=== PATIENT | male | born 1965 | race Caucasian/White ===

== ENCOUNTER 2022-05-09 17:04 | Emergency (ER) | payer MEDICAID, SELFPAY ==
--- NOTE | ~2022-05-09 | XR_ITS ---
XR foot RT min 3V DATE: 05/09/2022 17:49 INDICATION: Pain TECHNIQUE: 4 views COMPARISON: None FINDINGS: Mild plantar and slight posterior calcaneal enthesopathy. No fracture, dislocation, periosteal reaction or bone destruction. Mild osteophyte is at the first me tatarsophalangeal joint. 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
[2022-05-09 17:26] VITALS: BP 151/97; PULSE 78; RESP 20; TEMP 37.1; O2SAT 95
--- NOTE | 2022-05-09 17:39 | ED.LOWEXIN ---
HPI - Extremity Injury (Lower) General Chief Complaint: Extremity Injury, Lower Stated Complaint: Right foot pain History of Present Illness HPI Narrative: PATIENT PRESENTS WITH PAIN TO HIS RIGHT HEEL FOR THE PAST 3 WEEKS. PATIENT DENIES ANY INJURY. PATIENT DENIES ANY NEW SHOES NO CHANGE IN LIFESTYLE BUT PATIENT HAS PAIN TO THE MEDIAL SIDE OF HIS LEFT FOOT ALL ALONG TO THE HEEL. PATIENT STATES HE HAS BEEN TAKING IBUPROFEN WITHOUT ANY RELIEF. Related Data Allergies Allergy/AdvReac Type Severity Reaction Status Date / Time No Known Allergies Allergy Verified 05/09/22 17:30 Review of Systems Review of Systems: CONSTITUTIONAL: DENIES FEVER, CHILLS, OR SWEATS. EYES: DENIES VISUAL CHANGES, REDNESS, OR DISCHARGE. ENT: DENIES RHINORRHEA, CONGESTION, SORE THROAT, OR OTALGIA. CARDIOVASCULAR: DENIES CHEST PAIN, PALPITATIONS, OR EDEMA. RESPIRATORY: DENIES COUGH OR DYSPNEA. GASTROINTESTINAL: DENIES ABDOMINAL PAIN, NAUSEA, VOMITING, OR DIARRHEA. GENITOURINARY: DENIES DYSURIA OR HEMATURIA. SKIN: DENIES RASH OR ITCHING. MUSCULOSKELETAL: DENIES BACK PAIN, JOINT PAIN, OR MYALGIA. NEUROLOGIC: DENIES HEADACHE, NUMBNESS, OR WEAKNESS. PSYCHIATRIC: DENIES ANXIETY OR DEPRESSION. PMFSH Comments AT TIME OF SIGNATURE, AGREE WITH NURSING PAST MEDICAL, SURGICAL, SOCIAL AND FAMILY HISTORY. THERE IS NO RELEVANT FAMILY HISTORY PERTINENT TO THE PRESENTING COMPLAINT Exam Narrative: GENERAL: WELL-APPEARING, WELL-NOURISHED, AND IN NO ACUTE DISTRESS. HEAD: NORMOCEPHALIC, ATRAUMATIC. EYES: PERRLA AND EOMI. ENT: NARES CLEAR, NO RHINORRHEA OR EPISTAXIS. MUCOUS MEMBRANES MOIST. NECK: SUPPLE. CHEST: CLEAR TO AUSCULTATION. NO RESPIRATORY DISTRESS. HEART: REGULAR RATE AND RHYTHM. NO MURMUR HEARD. NORMAL PERIPHERAL PULSES. ABDOMEN: SOFT, NONTENDER, NONDISTENDED, NORMAL ACTIVE BOWEL SOUNDS. EXTREMITIES: NORMAL RANGE OF MOTION. NO EDEMA. SKIN INTACT. NORMAL DP PULSE, NORMAL CAP REFILL. NORMAL SENSATION. PAIN TO MEDIAL SIDE OF RIGHT FOOT PLANTAR SIDE AND HE WILL SKIN: WARM, DRY, NO RASH. NEURO: NO FOCAL DEFICITS. ALERT AND ORIENTED X3. AISLINN COMA SCALE EYE OPENING: SPONTANEOUS 4 AISLINN COMA SCALE MOTOR: OBEYS COMMANDS 6 AISLINN COMA SCALE VERBAL: ORIENTED 5 AISLINN COMA SCALE TOTAL 15 Course Course Level of Care: Express Care Visit Vital Signs Vital signs: Vital Signs Temperature 37.1 C 05/09/22 17:26 Pulse Rate 78 05/09/22 17:26 Respiratory Rate 20 05/09/22 17:26 Blood Pressure 151/97 H 05/09/22 17:26 Pulse Oximetry 95 05/09/22 17:26 Oxygen Delivery Room Air 05/09/22 17:26 Temperature 37.1 C 05/09/22 17:26 Pulse Rate 78 05/09/22 17:26 Respiratory Rate 20 05/09/22 17:26 Blood Pressure 151/97 H 05/09/22 17:26 Pulse Oximetry 95 05/09/22 17:26 Oxygen Delivery Room Air 05/09/22 17:26 PLEASE JAMES SCHEDULE A FOLLOWUP VISIT WITH YOUR PERSONAL PHYSICIAN FOR FURTHER EVALUATION AND TREATMENT. INCLUDING RECHECK AND DISCUSSION OF YOUR BLOOD PRESSURE. IF YOUR SYMPTOMS PERSIST, CHANGE OR WORSEN SIGNIFICANTLY BEFORE YOU CAN CONTACT YOUR PERSONAL PHYSICIAN THEN PLEASE, WITHOUT DELAY, GO TO THE EMERGENCY DEPARTMENT FOR FURTHER EVALUATION Discharge Plan Discharge Clinical Impression: Plantar fasciitis Patient Disposition: Home, Self-Care Condition: Stable Instructions: Osteoarthritis (DC), Heel Spur (ED) Additional Instructions: MEDICATIONS PRESCRIBED ELEVATE HEAT/ICE FOLLOW UP WITH pcp IN 2-3 DAYS IF ANY NEW OR WORSENING OF SYMPTOMS GO TO ER IMMEDIATELY Prescriptions: New prednisone 20 mg tablet 40 mg PO DAILY 5 Days Qty: 10 0RF Follow-up/Referrals: Tyler Donis MD [Primary Care Provider] -
== END 2022-05-09 18:25 | disposition home or self-care (01) ==
PROVIDERS: Emergency Provider Nurse Practitioner Family; PCP Emergency Medicine
DX: M72.2 Plantar fascial fibromatosis (principal)
CPT/HCPCS: 73630; 99213; G0463

== ENCOUNTER 2022-05-27 10:00 | Emergency (ER) | payer MEDICAID, SELFPAY ==
[2022-05-27 10:08] VITALS: BP 152/83; PULSE 88; RESP 16; TEMP 37.1; O2SAT 97
--- NOTE | 2022-05-27 10:42 | ED.URI ---
HPI - URI/Sore Throat General Chief Complaint: Upper Respiratory Infection Stated Complaint: cold/flu Time Seen by Provider: 05/27/22 10:35 Source: patient, RN notes reviewed and old records reviewed Mode of arrival: ambulatory Limitations: no limitations History of Present Illness HPI Narrative: 57 year old male who presents to [facility] care with 3 day history of cough, headache vomiting and diarrhea, chest congestion and head congestion with expectoration of yellow mucous. Patient reports that he has had chronic tiredness since having COVID. Patient denies any fevers, chills or body aches, states that he has had COVID vaccination. He has not taken any OTC medications for his symptoms, reports they 'don't work'. Reports no fever, or known ill contact. MD elicited complaint: cough, rhinorrhea, nasal congestion and other (chest congestion, vomiting and diarrhea) Pertinent past history: pneumonia Onset (ago): day(s) (3) Pain scale (0-10): 8 Description of mucous: yellow Able to tolerate fluids by mouth: Yes Treatments prior to arrival: none Related Data Allergies Allergy/AdvReac Type Severity Reaction Status Date / Time No Known Allergies Allergy Verified 05/09/22 17:30 Review of Systems Review of Systems: CONSTITUTIONAL: Denies malaise, chills, sweats, or fever. EYES: Denies visual changes, redness, or discharge. ENT: Reports rhinorrhea, congestion, sinus pain, no otalgia and no sore throat. CARDIOVASCULAR: Denies chest pain, palpitations, or edema. RESPIRATORY: Reports cough.? Denies acute dyspnea.reports some yellow phlegm GASTROINTESTINAL: Denies abdominal pain, some episodes of vomiting, diarrhea SKIN: Denies rash or itching. MUSCULOSKELETAL: Denies myalgia. NEUROLOGIC: Reports headache. All systems reviewed & are unremarkable except as noted in HPI and below PMFSH Past Medical History Medical History (Updated 05/28/22 @ 09:34 by Gela Saldivar NP) COVID-19 2019 Pneumonia Surgical History Surgical History (Updated 05/28/22 @ 09:36 by Gela Saldivar NP) H/O Achilles tendon repair left Hx of tonsillectomy Social History Social History (Updated 05/28/22 @ 09:37 by Gela Saldivar NP) Smoking status: Never smoker Alcohol intake: unknown Substance use type: does not use Gender identity (if verbalized by the patient): Male Comments At time of signature, agree with nursing past medical, surgical, social and family history. There is no relevant family history pertinent to the presenting complaint Exam Narrative: GENERAL: Well-appearing, well-nourished, and in no acute distress. HEAD: Normocephalic EYES: PERRLA, conjunctivae clear ENT: Nares clear, turbinates edematous and erythematous, clear discharge. Mucous membranes moist. TM pearly gabriel with dull light reflex bilaterally; no tragal tenderness. Oropharynx erythematous without lesions. Tonsils not present and throat without exudate, no drooling, no hoarseness, no trismus, uvula midline.post nasal drainage noted NECK: Supple. No lymphadenopathy CHEST: Clear to auscultation, breath sounds equal. No wheezing, rhonchi, rales, or stridor. No respiratory distress, speaks in full sentences. productive cough yellow mucous, SAO2 97% on room air HEART: Regular rate and rhythm. No murmur heard. SKIN: Warm, dry, no rash. NEURO: Alert and oriented x3. PSYCH: Normal mood and affect Course Course Emergency Course: Patient is aware of diagnosis, understands and agrees to treatment plan.? Anticipatory guidance given.? Patient agrees to follow-up as directed and is aware of reasons to seek care at the emergency department. Portions of this record may have been created with voice recognition software Level of Care: Express Care Visit Vital Signs Vital signs: Vital Signs Temperature 37.1 C 05/27/22 10:08 Pulse Rate 88 05/27/22 10:08 Respiratory Rate 16 05/27/22 10:08 Blood Pressure 152/83 H 05/27/22 10:08
== END 2022-05-27 11:05 | disposition home or self-care (01) ==
PROVIDERS: Emergency Provider Registered Nurse
DX: J06.9 Acute upper respiratory infection, unspecified (principal); Z20.822 Contact with and (suspected) exposure to COVID-19; Z86.16 Personal history of COVID-19
CPT/HCPCS: 87426; 87804; 99213; C9803; G0463

== ENCOUNTER 2023-04-01 11:49 | Emergency (ER) | payer OTHER, SELFPAY ==
--- NOTE | ~2023-04-01 | XR_ITS ---
XR elbow LT min 3V DATE: 04/01/2023 12:29 INDICATION: Left elbow pain for 3 months. No known injury. Posterior spur. TECHNIQUE: 4 views COMPARISON: None FINDINGS: Dorsal prominent olecranon process spur. No fracture or dislocation or joint effusion. No periosteal reaction or bone destruction. Joint space s are relatively preserved. IMPRESSION: Posterior olecranon process spur Reviewed, dictated and finalized at location L. [facility] [employer]
--- NOTE | 2023-04-01 11:57 | ED.EXTPRO ---
HPI - Extremity Problem General Chief complaint: Extremity Problem,Nontraumatic Stated complaint: Left elbow spur Time Seen by Provider: 04/01/23 11:58 Source: patient, RN notes reviewed and old records reviewed Mode of arrival: ambulatory Limitations: no limitations History of Present Illness HPI Narrative: 57-year-old male presents to the [facility] with concerns for a left elbow spur. Patient reports that he was evaluated in the emergency room and was told to follow up, Patient had contacted primary care provider has an appointment for him in 2 weeks and waiting for referral to Ortho Related Data Allergies Allergy/AdvReac Type Severity Reaction Status Date / Time No Known Allergies Allergy Verified 04/01/23 12:09 Review of Systems Review of Systems: All systems reviewed & are unremarkable except as noted in HPI and below Constitutional: Constitutional: Reports no additional constitutional complaints Eyes: Eyes: Reports no additional eye complaints ENT: Reports system reviewed and no additional complaints, except as documented Cardiovascular: Cardiovascular: Reports no additional cardiovascular complaints, Denies chest pain and Denies dyspnea Respiratory: Respiratory: Reports no additional respiratory complaints, Denies chest congestion, Denies cough and Denies dyspnea Gastrointestinal: Gastrointestinal: Reports no additional gastrointestinal complaints, Denies abdominal pain, Denies nausea and Denies vomiting Musculoskeletal: Musculoskeletal: Reports as per HPI, Reports arthralgias and Reports joint swelling Integumentary/Breasts: Skin/Breast: Reports system reviewed and no additional complaints, except as docu Neurologic: Reports system reviewed and no additional complaints, except as documented Psychiatric: Psychiatric: Reports no additional psychiatric complaints Allergic/Immunologic: Allergic/Immunologic: Reports no additional allergic/immunologic complaints [facility] Past Medical History Medical History (Updated 04/01/23 @ 12:48 by Desiree Escamilla APRN) COVID-19 2019 Pneumonia Surgical History Surgical History H/O Achilles tendon repair left Hx of tonsillectomy Social History Social History Smoking status: Never smoker Alcohol intake: unknown Substance use type: does not use Gender identity (if verbalized by the patient): Male Comments At the time of my signature, I reviewed and agree with the nursing past medical, surgical, social, and family history. There is no relevant family history pertinent to the patient complaint. Exam Const: General: cooperative, healthy appearing, comfortable, no acute distress, well developed, alert and well nourished Nutritional Appearance: well nourished Orientation/consciousness: patient oriented x3 Limitations: no limitations HENMT: Head: normal to inspection Ears: hearing grossly normal bilaterally and external ears normal Face/Nose/Sinus: Normal external nose present, Normal nares present, Normal nasal mucous membranes and turbinates present, normal facial exam and face symmetric Face and sinus: normal facial exam and face symmetric Eyes: General: appearance normal, both eyes and all related structures Alignment and Position: alignment normal Periorbital: periorbital findings normal Pupils: Equal, round and reactive pupils present EOM: EOMs intact bilaterally Neck: Neck: normal visual inspection, full ROM, no lymphadenopathy and no meningeal signs Chest: Chest palpation & inspection: normal inspection of the chest Resp: Effort & Inspection: normal respiratory effort and able to speak in complete sentences Auscultation: clear to auscultation bilaterally, no crackles, no rales, no rhonchi and no wheezes Cardio: Rate: regular rate Rhythm: regular rhythm Back/Spine/Pelvis: Cervical Spine: cervical ROM normal Skin: General skin exam: no
[2023-04-01 11:58] VITALS: BP 131/99; PULSE 77; RESP 20; TEMP 36.6; O2SAT 98
== END 2023-04-01 12:55 | disposition home or self-care (01) ==
PROVIDERS: Emergency Provider Nurse Practitioner
DX: M77.8 Other enthesopathies, not elsewhere classified (principal); M70.22 Olecranon bursitis, left elbow; Z86.16 Personal history of COVID-19
CPT/HCPCS: 73080; 99213; G0463

== ENCOUNTER 2023-11-29 12:43 | Emergency (ER) | payer OTHER, SELFPAY ==
[2023-11-29 12:56] VITALS: BP 151/84; PULSE 79; RESP 16; TEMP 36.7; O2SAT 94
--- NOTE | 2023-11-29 13:02 | ED.URI ---
HPI - URI/Sore Throat General Chief Complaint: Upper Respiratory Infection Stated Complaint: Flu symptoms Time Seen by Provider: 11/29/23 13:02 Source: patient, RN notes reviewed and old records reviewed Mode of arrival: ambulatory Limitations: no limitations History of Present Illness HPI Narrative: 58 year old male presents to [facility] care with complaints of abdominal cramping with nausea and vomiting and also diarrhea since yesterday morning. Patient reports that he last vomited 2 hours ago and had last diarrhea stool at 0630 this morning. Patient reports that he has been trying to drink some water but not really staying down, denies any fevers or any acute abdominal pain.Patient states he feels a little better today but his boss wants him to get checked out. MD elicited complaint: other (nause and vomiting and diarrhea, cramping abdomen) Onset (ago): day(s) (since yesterday morning) Severity: moderate Pain scale (0-10): 2 Treatments prior to arrival: none Related Data Allergies Allergy/AdvReac Type Severity Reaction Status Date / Time No Known Allergies Allergy Verified 04/01/23 12:09 Review of Systems Review of Systems: CONSTITUTIONAL: Reports malaise,no chills, sweats, or fever. EYES: Denies visual changes, redness, or discharge. ENT: Reports rhinorrhea, congestion, sinus pain, otalgia and sore throat. CARDIOVASCULAR: Denies chest pain, palpitations, or edema. RESPIRATORY: Reports no cough.? Denies dyspnea. GASTROINTESTINAL: Reports some mid abdominal cramping,positive for nausea, vomiting, diarrhea SKIN: Denies rash or itching. MUSCULOSKELETAL: Denies myalgia. NEUROLOGIC: Denies headache. All systems reviewed & are unremarkable except as noted in HPI and below PMFSH Past Medical History Medical History COVID-19 2019 Pneumonia Surgical History Surgical History H/O Achilles tendon repair left Hx of tonsillectomy Social History Social History Smoking status: Never smoker Alcohol intake: unknown Substance use type: does not use Gender identity (if verbalized by the patient): Male Comments At time of signature, agree with nursing past medical, surgical, social and family history. There is no relevant family history pertinent to the presenting complaint Exam Narrative: GENERAL: Well-appearing, well-nourished,obese and in no acute distress. HEAD: Normocephalic EYES: PERRLA, conjunctivae clear ENT: Nares clear, turbinates edematous and erythematous, clear discharge. Mucous membranes moist. TM pearly gabriel with dull light reflex bilaterally; no tragal tenderness. Oropharynx erythematous without lesions. Tonsils not enlarged and without exudate, no drooling, no hoarseness, no trismus, uvula midline. NECK: Supple. No lymphadenopathy CHEST: Clear to auscultation, breath sounds equal. No wheezing, rhonchi, rales, or stridor. No respiratory distress, speaks in full sentences.no cough noted SAO2 94% on room air HEART: Regular rate and rhythm. No murmur heard. Abdomen, soft and nontender to palpation, no distention noted bowel sounds hyperactive in all quadrants, no McBurney point tenderness. SKIN: Warm, dry, no rash. NEURO: Alert and oriented x3. PSYCH: Normal mood and affect Course Course Emergency Course: Patient is aware of diagnosis, understands and agrees to treatment plan.? Anticipatory guidance given.? Patient agrees to follow-up as directed and is aware of reasons to seek care at the emergency department. Portions of this record may have been created with voice recognition software Level of Care: Express Care Visit Vital Signs Vital signs: Vital Signs Temperature 36.7 C 11/29/23 12:56 Pulse Rate 79 11/29/23 12:56 Respiratory Rate 16 11/29/23 12:56 Blood Pressure 151/84 H
[2023-11-29 13:36] LABS: EDCOVIDSCREEN Negative (Negative); EDINFLUASCREEN Negative (Negative); EDINFLUBSCREEN Negative (Negative)
== END 2023-11-29 13:50 | disposition home or self-care (01) ==
PROVIDERS: Emergency Provider Registered Nurse
DX: K52.9 Noninfective gastroenteritis and colitis, unspecified (principal); Z20.822 Contact with and (suspected) exposure to COVID-19; Z86.16 Personal history of COVID-19
CPT/HCPCS: 87426; 87804; 99213; G0463

== ENCOUNTER 2024-02-02 18:33 | Emergency (ER) | payer OTHER, SELFPAY ==
[2024-02-02 18:40] VITALS: BP 129/88; PULSE 66; RESP 16; TEMP 36.8; O2SAT 97
--- NOTE | 2024-02-02 18:47 | ED.MALEGU ---
HPI - Male Genitourinary General Chief complaint: Urogenital-Male Stated complaint: STD tests Time Seen by Provider: 02/02/24 18:56 Source: patient and RN notes reviewed Mode of arrival: ambulatory Limitations: no limitations History of Present Illness HPI Narrative: 58-year-old male presents with concern for STD exposure. Reports his girlfriend told him she was positive for an STD but would not tell him which STD. He denies any symptoms. Denies dysuria, frequency, penile discharge, lesions. MD Complaint: possible STD exposure Related Data Allergies Allergy/AdvReac Type Severity Reaction Status Date / Time No Known Allergies Allergy Verified 02/02/24 18:49 Review of Systems Review of Systems: CONSTITUTIONAL: Denies malaise, chills, sweats, or fever. CARDIOVASCULAR: Denies chest pain, palpitations, or edema. RESPIRATORY: Denies cough or dyspnea. GASTROINTESTINAL: Denies abdominal pain, nausea, vomiting, diarrhea GENITOURINARY: Denies discharge, dysuria, frequency, urgency, suprapubic pressure. Denies flank pain or hematuria. SKIN: Denies rash or itching. MUSCULOSKELETAL: Denies back pain or myalgia. All systems reviewed & are unremarkable except as noted in HPI and below PMFSH Past Medical History Medical History COVID-19 2020 Pneumonia Surgical History Surgical History H/O Achilles tendon repair left Hx of tonsillectomy Social History Social History Smoking status: Never smoker Alcohol intake: unknown Substance use type: does not use Gender identity (if verbalized by the patient): Male Comments At time of signature, agree with nursing past medical, surgical, social and family history. There is no relevant family history pertinent to the presenting complaint Exam Narrative: GENERAL: Well-appearing, well-nourished, and in no acute distress. HEAD: Normocephalic. EYES: PERRLA, conjunctivae clear. NECK: Supple. No lymphadenopathy CHEST: Clear to auscultation. No respiratory distress. HEART: Regular rate and rhythm. ABDOMEN: Soft, nontender upon palpation, nondistended, normal active bowel sounds, no palpable or pulsatile masses, no guarding. No CVA tenderness SKIN: Warm, dry, no rash. NEURO: Alert and oriented x3. PSYCH: Normal mood and affect Course Course Emergency Course: Patient is aware of diagnosis, understands and agrees to treatment plan. Anticipatory guidance given. Patient agrees to follow-up as directed and is aware of reasons to seek care at the emergency department. Portions of this record may have been created with voice recognition software Level of Care: Express Care Visit Vital Signs Vital signs: Vital Signs Temperature 98.2 F 02/02/24 18:40 Pulse Rate 66 02/02/24 18:40 Respiratory Rate 16 02/02/24 18:40 Blood Pressure 129/88 02/02/24 18:40 Pulse Oximetry 97 02/02/24 18:40 Oxygen Delivery Room Air 02/02/24 18:40 Temperature 98.2 F 02/02/24 18:40 Pulse Rate 66 02/02/24 18:40 Respiratory Rate 16 02/02/24 18:40 Blood Pressure 129/88 02/02/24 18:40 Pulse Oximetry 97 02/02/24 18:40 Oxygen Delivery Room Air 02/02/24 18:40 Reviewed. MDM - Male Genitourinary MDM Narrative Medical decision making narrative: I evaluated this patient in the express care. History is obtained from patient who is an independent historian and physical exam was performed.? Available medical records were reviewed. ? Exam findings and relevant testing show no acute concerns or changes; patient is non-toxic appearing and is in no distress. ? Differential diagnosis and treatment plan were discussed with the patient. Patient agrees with discussion and after shared medical decision making agrees with plan of care. All questions were answered to the patient's satisfaction. Patient is appropriate for outpatient treatment and follow-up. Critical Care Time Critical Care Time Critical Care Time: No Discharge Plan Discharge Clinical Impression: Possible exposure to STD Patient Disposition: Home, Self-Care Condition: Stable Instructions: Antibiotic Form, Sexually Transmitted Diseases (ED) Additional Instructions: You have been tested for potential gonorrhea, chlamydia, and trichomoniasis today. You have received antibiotics to treat gonorrhea today, a prescription has been called into your pharmacy to treat chlamydia and trichomoniasis. You will receive a phone call in 2-3 days with the results of today's testing. It is very important that you avoid unprotected intercourse during treatment and for 7 days AFTER TREATMENT is complete and until your partner(s) have been treated. Please encourage your partner(s) to seek testing and treatment. When you have been exposed to sexually transmitted infections, it is important that you seek comprehensive testing, since we do not provide testing for all sexually transmitted infections. Some infections can have no symptoms, but cause serious health problems. Contact your health care provider or report to the emergency department if: You have genital swelling or pain, or unusual bleeding. You have joint pain, rash, swollen lymph nodes or night sweats. You are severe abdominal pain. You have a fever. Symptoms do not go away or they get worse even after treatment. You have bleeding or pain during sex. Patient Language: Macedonian Prescriptions: New metronidazole 500 mg tablet 2,000 mg PO ONCE Qty: 4 0RF doxycycline monohydrate 100 mg tablet 100 mg PO BID 7 Days Qty: 14 0RF No Action dicyclomine 20 mg tablet 20 mg PO TID Qty: 20 0RF ondansetron 4 mg tablet,disintegrating 4 mg PO Q6H PRN (Reason: nausea and vomiting) Qty: 20 0RF Rx Instructions: for any nausea and vomiting Follow-up/Referrals: PHYSICIAN,H[employer] M[employer] OPERATOR [Primary Care Provider] - Time of Disposition: 19:04
[2024-02-02] MEDS: cefTRIAXone 500 MG, LIDOCAINE 1% LOCAL INJ 1 ML IM (19:12)
[2024-02-03 20:43] LABS: Trichomonas Vag PCR NOT DETECTED (NOT DETECTE)
[2024-02-03 21:07] LABS: Chlamydia trachomatis NOT DETECTED (NOT DETECTE); Neisseria gonorrhoeae PCR NOT DETECTED (NOT DETECTE)
== END 2024-02-02 19:30 | disposition home or self-care (01) ==
PROVIDERS: Emergency Provider Nurse Practitioner
DX: Z11.3 Encounter for screening for infections with a predominantly sexual mode of transmission (principal); Z86.16 Personal history of COVID-19
CPT/HCPCS: 87491; 87591; 87661; 96372; 99213; G0463; J0696; J2003

== ENCOUNTER 2024-10-27 13:35 | Emergency (ER) | payer BC, SELFPAY ==
[2024-10-27 13:42] VITALS: BP 151/66; PULSE 73; RESP 16; TEMP 36.7; O2SAT 97
--- NOTE | 2024-10-27 14:12 | ED_ITS ---
HPI - Eye Problem General Chief complaint: Eye Problems Stated complaint: right eye Time Seen by Provider: 10/27/24 14:12 Source: patient Mode of arrival: ambulatory Limitations: no limitations History of Present Illness HPI Narrative: 59 y/o male presented for c/o a 'bump' on right upper eyelid. Endorses itching to the area. Denies any pain or drainage, vision changes, or FB sensation. 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 Pt wears glasses, denies wearing contact lenses. MD chief complaint: eye pain Related Data Home Medications ?Medication ?Instructions ?Recorded ?Confirmed ?Last Taken ?Type No Home Medications 10/27/24 10/27/24 U nknown History Allergies Allergy/AdvReac Type Severity Reaction Status Date / Time No Known Allergies Allergy Verified 10/27/24 13:48 Review of Systems Review of Systems: CONSTITUTIONAL: Denies body aches, fever, chills EYES:Endorses right upper eyelid cyst; Denies visual changes swelling, redness, pain, FB sensation, photophobia ENT: Denies rhinorrhea, congestion, sore throat, or otalgia. CARDIOVASCULAR: Denies chest pain, palpitations SKIN: Denies rash, itching, or wounds. MUSCULOSKELETAL: Denies back pain, joint pain, or myalgia. NEUROLOGIC: Denies headache, numbness, tingling, or weakness. All systems reviewed & are unremarkable except as noted in HPI and below PMFSH Past Medical History Medical History COVID-19 2020 Pneumonia Surgical History Surgical History H/O Achilles tendon repair left Hx of tonsillectomy Social History Social History Smoking status: Never smoker Alcohol intake: unknown Substance use type: does not use Gender identity (if verbalized by the patient): Male Comments At time of signature, I have reviewed and agree with nursing past medical, surgical, social and family history unless otherwise noted. Please see nursing chart for further information. There is no relevant family history pertinent to the presenting complaint Exam Narrative: GENERAL: Well-appearing HEAD: Normocephalic, atraumatic. EYES: right upper medial eyelid with less than 0.5 cm diameter clear fluid filled cyst. Nontender, no drainage or surrounding induration. No conjunctival injection, eye lid swelling/redness c/w stye.PERRLA, EOMI. Lid eversion Shows no FB ENT: Mucous membranes pink and moist. No rhinorrhea. TMs normal bilaterally. Throat normal. Uvula midline. CHEST: Clear to auscultation. SKIN: Warm, dry, no rash. Normal skin turgor. NEURO: No focal deficits. Alert and oriented x3 PSYCH: Normal affect. Course Course Emergency Course: Patient is aware of diagnosis, understands and agrees to treatment plan. Anticipatory guidance given. Patient agrees to follow-up as directed and is aware of reasons to seek care at the emergency department. Portions of this record may have been created with voice recognition software Level of Care: Express Care Visit Vital Signs Vital signs: Vital Signs Temperature 98.0 F 10/27/24 13:42 Pulse Rate 73 10/27/24 13:42 Respiratory Rate 16 10/27/24 13:42 Blood Pressure 151/66 H 10/27/24 13:42 Pulse Oximetry 97 10/27/24 13:42 Oxygen Delivery Room Air 10/27/24 13:42 Temperature 98.0 F 10/27/24 13:42 Pulse Rate 73 10/27/24 13:42 Respiratory Rate 16 10/27/24 13:42 Blood Pressure 151/66 H 10/27/24 13:42 Pulse Oximetry 97 10/27/24 13:42 Oxygen Delivery Room Air 10/27/24 13:42 MDM - Eye Problem MDM Narrative Medical decision making narrative: Discussed physical exam findings; cyst to right medial upper lid. Advised supportive measures and signs/symptoms to go to the ER. Pt is appropriate for outpt treatment and f/u. Differential Diagnosis Differential diagnosis: Likely corneal abrasion, conjunctivitis, acute iritis and other (stye) Discharge Plan Discharge Clinical Impression: Cyst of right eyelid Patient Disposition: Home Condition: Stable Instructions: Antibiotic Form, Stye (ED) Additional Instructions: Apply warm, moist compresses on the affected area frequently (for 5 to 10 minutes three to five times per day) in order to help with drainage. Massage and gentle wiping of the affected eyelid after the warm compress can also help with drainage. You can use baby shampoo to wash the eye area Tylenol or Motrin if you develop pain to the site If the lesion does not improve within one week, please follow up with an tech intern for further management. [facility] [phone] [place] [facility] [phone] [facility] [phone] [facility] [phone] Patient Language: Danish Prescriptions: No Action No Home Medications Follow-up/Referrals: Kenny,Dusty Mckenzie, DO [Primary Care Provider, Unknown] Stand Alone Forms: Work/School Release IP Time of Disposition: 14:20
--- OUTSIDE RECORDS SUMMARY | 2024-10-27 14:25 | XMS_ITS | Continuity of Care Document ---
Author Name Abdon Robison Address [address] [place] [address] Organization Unknown Address [address] [place] [address] Medications No known medications Problems No known problems
--- OUTSIDE RECORDS SUMMARY | 2024-10-27 14:25 | XMS_ITS | Continuity of Care Document ---
Author Name Abdon Robison Address [address] [place] [address] Organization Unknown Address [address] [place] [address] Medications No known medications Problems No known problems
--- OUTSIDE RECORDS SUMMARY | 2024-10-27 14:25 | XMS_ITS | Clinical Summary ---
Author Organization [facility] Address [address] [place] [address] Care Team Providers Care Braille Translator Name Role Phone No, Physician Primary Care Provider [phone] Allergies No known active allergies Medications naproxen (NAPROSYN) 500 mg tabletIndicati ons:Septic olecranon bursitis of left elbow Take 1 tablet (500 mg total) by mouth 2 (two) times a day with meals P.r.n. pain and swelling. Collaborating physician Bud Gipson MD 20 tablet 3 Active acetaminophen- codeine (TYLENOL with CODEINE #3) 300-30 mg per tabletIndicati ons:Septic olecranon bursitis of left elbow Take 1 tablet by mouth every 6 (six) hours as needed for pain P.r.n. pain not relieved by naproxen alone. Take with food. Collaborating physician Bud Gipson MD 12 tablet 3 Active methocarbamoL (ROBAXIN) 500 mg tablet Take 1 tablet (500 mg total) by mouth 2 (two) times a day 20 tablet 4 Active lidocaine (LIDODERM) 5 % Place 1 patch on the skin daily for 14 days Remove & discard patch within 12 hours or as directed by . 14 patch 4 Active ibuprofen (ADVIL,MOTRIN) 600 mg tabletIndicati ons:Pain Take 1 tablet (600 mg total) by mouth every 6 (six) hours as needed for pain 30 tablet 5 Active cyclobenzaprin e (FLEXERIL) 10 mg tablet Take 1 tablet (10 mg total) by mouth 2 (two) times a day as needed for muscle spasms 20 tablet 5 Active Active Problems Problem Noted Date Diagnosed Date Family history of colon cancer in mother 024 Encounter for screening colonoscopy 05/13/2023 Septic olecranon bursitis of left elbow 11/12/19 23 Encounters Date Type Department Care Team Description 07/28/2024 Telephone [facility] [address], [place] [address] Dusty Cox DO from Last 3 Months Social History Tobacco Use Types Packs/Day Years Used Date Smoking Tobacco: Never Assessed Personal Safety Answer Date Recorded Have you ever been in or are you currently in a harmful physical or emotional relationship or is someone making you feel afraid or unsafe? Denies 03/11/2023 Sex and Gender Information Value Date Recorded Sex Assigned at Not on file Legal Sex Male 9:29 AM CDT Gender Identity Not on file Sexual Orientation Not on file Obstetrics History Last Filed Vital Signs Vital Sign Reading Time Taken Comments Blood Pressure 148/82 05/01/2024 12:25 AM CDT Pulse 78 05/01/2024 12:25 AM CDT Temperature 36.1 C (97 F) 04/30/2024 9:02 PM CDT Respiratory Rate 16 04/30/2024 9:02 PM CDT Oxygen Saturation 99% 05/01/2024 12:25 AM CDT Inhaled Oxygen Concentration - - Weight 129.3 kg (285 lb) 04/30/2024 9:02 PM CDT Height 182.9 cm (6') 04/30/2024 9:02 PM CDT Body Mass Index 38.65 04/30/2024 9:02 PM CDT Plan of Treatment Health Maintenance Due Date Last Done Comments Colon Cancer Screening-Colonoscopy 1967 Depression Screening 1967 Hepatitis C Screening 1967 Prostate Cancer Screening-PSA 1967 DTaP/Tdap/Td Vaccine (1 - Tdap) 05/24/1978 Hepatitis B Screening 05/24/1985 Regular Well Visit/Exam 18-64 05/24/1985 Zoster Vaccine (1 of 2) 05/24/2017 Influenza Vaccine (#1) 2024 Pneumococcal vaccine <65 Aged Out No longer eligible based on patient's age to complete this topic Insurance [facility] [employer] GENERIC Care Teams Braille Translator Relationship Specialty Start Date End Date No, Physician PCP - General 04/30/24
== END 2024-10-27 14:23 | disposition home or self-care (01) ==
PROVIDERS: Emergency Provider Nurse Practitioner Family; PCP Family Medicine
DX: H02.821 Cysts of right upper eyelid (principal); Z86.16 Personal history of COVID-19
CPT/HCPCS: 99211; G0463